=== PATIENT | female | born 1935 | race Two or more races ===

== ENCOUNTER 2022-03-25 10:25 | Outpatient (CLI) | payer MEDICARE, OTHER | END 2022-03-25 23:59 | disposition home or self-care (01) | LOC: MSC 10:25 | PROVIDERS: ATTEND Anesthesiology | DX: M54.50 Low back pain, unspecified (principal); M40.299 Other kyphosis, site unspecified; M62.830 Muscle spasm of back; M25.569 Pain in unspecified knee; M25.539 Pain in unspecified wrist; M79.606 Pain in leg, unspecified; I69.354 Hemiplegia and hemiparesis following cerebral infarction affecting left non-dominant side; Z74.09 Other reduced mobility; Z79.1 Long term (current) use of non-steroidal anti-inflammatories (NSAID) ==